=== PATIENT | female | born 1985 | race Hispanic/Latino ===

== ENCOUNTER 2018-05-19 09:27 | Emergency (ER) | payer SELFPAY ==
[2018-05-19] MEDS ORDERED: Ketorolac Tromethamine 60 MG/2 ML VIAL ONE (09:38)
--- NOTE | 2018-05-19 10:32 | RAD ---
FOUR VIEWS LEFT KNEE: Comparison: None. History: Left knee pain after popping last night. FINDINGS: Four views of the left knee shows no evidence of acute fracture or dislocation. No knee effusion is s een. Post-surgical changes are seen from prior ACL repair. IMPRESSION: No evidence of acute osseous abnormality. POS: [facility]
== END 2018-05-19 10:31 | disposition home or self-care (01) ==
LOC: ERS 09:27
DX: M25.462 Effusion, left knee (principal); J45.909 Unspecified asthma, uncomplicated; F41.9 Anxiety disorder, unspecified; F32.9 Major depressive disorder, single episode, unspecified
CPT/HCPCS: 96372; J1885